=== PATIENT | female | born 1950 | race Caucasian/White ===

== ENCOUNTER 2025-03-16 09:31 | Outpatient (AMB) | payer MEDICARE, SELFPAY ==
--- NOTE | 2025-03-16 09:39 | MHC.PC.OV ---
Vital Signs 03/16/25 09:52 Height 5 ft 3.75 in Weight 138 lb 6 oz BMI 23.9 BP 126/64 Blood Pressure Location Lt brachial Position Sitting Respiration 14 Pulse 80 Pulse Source Pulse Oximeter Temp 97.6 F Temp Source Temporal Artery Scan Pulse Oximetry (%) 99 Oxygen Delivery Method Room Air Intake Visit Reasons: DOCTOR OF OPTOMETRY-PE Intake Note: Samantha presents in the office today to establish care. Allergies erythromycin base Allergy (Severe, Verified 03/16/25 13:51) throat closing Penicillins Allergy (Verified 03/16/25 09:45) throat closure Medication List - Last Reconciled 03/16/25 by CHESTER Wilks ascorbate calcium (vitamin C) 500 mg PO DAILY atorvastatin (Lipitor) 20 mg PO DAILY hydroxyzine HCl 25 mg PO BEDTIME multivitamin (Daily Multi-Vitamin tablet) 1 tab PO DAILY pantoprazole 40 mg PO DAILY zinc acetate (Galzin) 50 mg PO DAILY Tobacco use date assessed: 03/16/25 Fall risk assessment: No Falls in past year Last assessed Fall Risk: 03/16/25 Dental Screening Dental Screen Date: 03/16/25 Did you have a dental visit in the last 12 months?: Yes Did you have a dental problem in the last 6 months where you did not have access to dental care?: No Was dental information given to patient?: Patient has dentist HPI HPI Comments History of Present Illness Details This is a 74-year-old female with a past medical history of osteopenia, GERD, endometriosis status post hysterectomy, fibrocystic breast disease, osteoporosis, hyperlipidemia and bursitis presenting to establish care. She transferred from Dr. Higgins. Hyperlipidemia-treated with atorvastatin 20 mg daily. Nonsmoker. No history of cardiovascular disease. Fibrocystic breast disease, osteoporosis-followed by Dr. Neumann's office. Previously treated with Prolia. She has a bone density test and mammogram scheduled next week. She has seen [facility] for bursitis in her hips. She did physical therapy. This is stable. GERD-takes pantoprazole. She is due for colonoscopy. Requests referral to [facility]. Patient reports she is up-to-date with vaccinations. She gets the flu shot in April. The patient has a heart murmur on exam. Denies chest pain, shortness of breath, leg swelling, dizziness. ROS: Constitutional: No unexplained weight loss, fever, chills, fatigue or night sweats. Respiratory: No shortness of breath, cough or sputum production. Cardiovascular: No chest pain, chest pressure or chest discomfort. No palpitations or pedal edema. Gastrointestinal: No anorexia, nausea, vomiting or diarrhea. No abdominal pain or blood in stool. Neurologic: No headache, dizziness, syncope Hematologic/Lymphatics: No bleeding or bruising. No painful lymph nodes. Skin: No rash Psychiatric: No depression or anxiety. No SI/HI. Physical exam: Constitutional: Alert, in no distress. Neck: Supple, Full range of motion. No lymphadenopathy. No palpable thyroid masses. Respiratory: Clear to auscultation. Cardiovascular: S1 S2 regular. .II/ systolic murmur. Occasional ectopic beat. No carotid bruits. Gastrointestinal: Abdomen soft, non-tender, non-distended. Normal bowel sounds. No palpable masses. Neurologic: No focal neurological deficits. Musculoskeletal: No gross deformities. Normal range of motion. Extremities: Warm and well perfused. No clubbing, cyanosis or edema. Intact peripheral pulses bilaterally Psychiatric: Normal mood and affect COUNTS INCLUDE 234 BEDS AT THE [facility] Medical History (Updated 03/16/25 @ 13:55 by CHESTER Wilks) Fibrocystic breast disease Pure hypercholesterolemia History of endometriosis Hip bursitis Osteoporosis Screen for colon cancer Heart murmur History of mammogram Shoulder pain with history of repair of rotator cuff Eczema Acid reflux Surgical History (Updated 03/16/25 @ 09:59 by Amanda Richard MA) History of colonoscopy H/O: hysterectomy Family History (Updated 03/16/25 @ 09:52 by Amanda Richard MA) Maternal Grandmother Hypertension Stroke Mother Cardiovascular disease FHx: mental illness Dementia Brother Lymphoma Social History (Updated 03/16/25 @ 09:52 by Amanda Richard MA) Housing: House Alcohol intake: current Patient Tobacco Use Status: Never used Tobacco e-Cigarette/Vaping Use: Never Used Second Hand Smoke Exposure: Yes service: No Current occupational status: retired Current occupational exposures/hazards: No Cognitive needs: No Hearing needs: No Vision needs: No Questionnaire PHQ-9 Over the last 2 weeks, how often have you been bothered by any of the following problems? 1. Little interest or pleasure in doing things: not at all 2. Feeling down, depressed, or hopeless: not at all 3. Trouble falling or staying asleep, or sleeping too much: not at all 4. Feeling tired or having little energy: not at all 5. Poor appetite or overeating: not at all 6. Feeling bad about yourself - or that you are a failure or have let yourself or your family down: not at all 7. Trouble concentrating on things, such as reading the newspaper or watching television: not at all 8. Moving or speaking so slowly that other people could have noticed. Or the opposite - being so fidgety or restless that you have been moving around a lot more than usual: not at all 9. Thoughts that you would be better off or of hurting yourself in some way: not at all Total score: 0 Depression Screening Interpretation: Negative Depression Screening Done: Yes 78745 - PHQ-9 Billing: Yes Source: Developed by Drs. Ramin Watson, Anushka Del Valle, Michael Nguyen and colleagues, with an educational justina from [employer]. Thrive Questionnaire Date Thrive assessed: 03/16/25 I am a: Patient What is your living situation today?: I have a steady place to live Within the past 12 months, did the food you bought not last and you didn't have the money to get more?: Never true Within the past 12 months, did you worry whether your food would run out before you got money to buy more?: Never true Do you have trouble paying for medicines?: No Do you have trouble getting transportation to medical appointments?: No Do you have trouble paying your heating and electricity bill?: No Do you have trouble taking care of your child, family member or friend?: No Do you have trouble with day-to-day activities such as bathing, preparing meals, shopping, managing finances, etc.?: No Are you currently unemployed and looking for a job?: No Are you interested in more education?: No Please select the resources that you would like help with: None Currently or been in a relationship where the following occur: No concerns reported THRIVE Score: 0 AUDIT C Alcohol Use Questionnaire (AUDIT-C) 1. How often do you have a drink containing alcohol?: 4 or more times a week 2. How many drinks containing alcohol do you have on a typical day when you are drinking?: 3 or 4 3. How often do you have six or more drinks on one occasion?: Never Total Score: 5 ELIZABETH-7 AMB Questionnaire ELIZABETH-7 Date ELIZABETH - 7 assessed: 03/16/25 Feeling nervous, anxious, or on edge: 0 = Not at all Not being able to stop or control worryin = Not at all Worrying too much about different things: 0 = Not at all Trouble relaxin = Not at all Being so restless that it is hard to sit still: 0 = Not at all Becoming easily annoyed or irritable: 0 = Not at all Feeling afraid as if something awful might happen: 0 = Not at all Total ELIZABETH-7 score (0-4 normal; 5-9 mild; 10-14 moderate; 15-21 severe): 0 Source: Developed by Drs. Ramin Watson, Anushka Del Valle, Michael Nguyen and colleagues, with an educational justina from [employer]. Physical exam (Primary Care) Vital Signs: Last Vital Signs Temp 97.6 F 03/16/25 09:52 Pulse 80 03/16/25 09:52 Resp 14 03/16/25 09:52 BP 126/64 03/16/25 09:52 Pulse Ox 99 03/16/25 09:52 Oxygen Delivery Method Room Air 03/16/25 09:52 BMI result Body Mass Index 23.9 Tobacco/Smoking Status: Tobacco use Status Tobacco use date assessed 03/16/25 03/16/25 09:59 Patient Tobacco Use Status Never used Tobacco 03/16/25 09:59 e-Cigarette/Vaping Use Never Used 03/16/25 09:59 PHQ-9: PHQ-9 Score PHQ-9: Total score 0 03/16/25 10:06 Depression Screening Interpretation: Negative Thrive Assessment: Date of Thrive Assessment Date Thrive assessed 03/16/25 03/16/25 09:40 Currently or been in a relationship where the following occur: No concerns reported Office Procedures EKG Details: EKG shows normal sinus rhythm, 81 beats per minute [id number], Complete Coding Level of Care Code New Pt Level 4 (85570) Complex EM visit Add On G2211 Diagnoses Acid reflux K21.9 Heart murmur R01.1 Pure hypercholesterolemia E78.00 Screen for colon cancer Z12.11 CPT Codes EKG - CPT: 46781-[id number], Complete ([id number]) Additional Codes PHQ-9 - 63203 - PHQ-9 Billing: Yes ([id number]) Assessment & Plan Assessment & Plan (1) Acid reflux: Code(s): K21.9 - Gastro-esophageal reflux disease without esophagitis Category: Medical Plan: Avoid spicy and acidic foods. Pantoprazole refilled. (2) Heart murmur: Code(s): R01.1 - Cardiac murmur, unspecified Category: Medical Plan: Echocardiogram ordered. (3) Pure hypercholesterolemia: Code(s): E78.00 - Pure hypercholesterolemia, unspecified Category: Medical Plan: Continue atorvastatin. Recommended Mediterranean diet and avoidance of smoking. (4) Screen for colon cancer: Code(s): Z12.11 - Encounter for screening for malignant neoplasm of colon Category: Medical Plan: Refer to Gastroenterology. Plan Follow up in 8 weeks to review echo and labs. Orders: Orders Complete Blood Count no Diff Today K21.9 - Gastro-esophageal reflux disease without esophagitis, M85.80 - Other specified disorders of bone density and structure, unspecified site AMB EKG-In Office Today R01.1 - Cardiac murmur, unspecified TSH reflex Free T4 Today M85.80 - Other specified disorders of bone density and structure, unspecified site Lipid Panel Today E78.5 - Hyperlipidemia, unspecified, K21.9 - Gastro-esophageal reflux disease without esophagitis, M85.80 - Other specified disorders of bone density and structure, unspecified site Comprehensive Met. Panel Today K21.9 - Gastro-esophageal reflux disease without esophagitis, M85.80 - Other specified disorders of bone density and structure, unspecified site Vitamin D 25-OH (D2 and D3) Today K21.9 - Gastro-esophageal reflux disease without esophagitis, M85.80 - Other specified disorders of bone density and structure, unspecified site CA echo transthoracic complete Today R01.1 - Cardiac murmur, unspecified Referrals Gastroenterology Referral Z12.11 - Encounter for screening for malignant neoplasm of colon Medications: New pantoprazole 40 mg PO DAILY 90 tabs 3RF
[2025-03-16 09:52] VITALS: BP 126/64; PULSE 80; RESP 14; TEMP 36.4; O2SAT 99; BMI 23.9
== END 2025-03-16 11:11 | disposition home or self-care (01) ==
LOC: HO.HMCFM 09:32
PROVIDERS: PCP Physician Assistant Medical; Visit Provider Physician Assistant Medical
DX: K21.9 Gastro-esophageal reflux disease without esophagitis (principal); R01.1 Cardiac murmur, unspecified; E78.00 Pure hypercholesterolemia, unspecified; Z12.11 Encounter for screening for malignant neoplasm of colon

== ENCOUNTER → 2025-03-16 09:31 | Outpatient (BNVA) | payer MEDICARE, SELFPAY | PROVIDERS: Visit Provider Physician Assistant Medical | DX: Z76.89 Persons encountering health services in other specified circumstances (principal); K21.9 Gastro-esophageal reflux disease without esophagitis; R01.1 Cardiac murmur, unspecified; E78.00 Pure hypercholesterolemia, unspecified; Z71.3 Dietary counseling and surveillance | CPT/HCPCS: 93005; 96127; 99202 ==

== ENCOUNTER 2025-03-17 08:15 | Outpatient (REF) | payer MEDICARE, SELFPAY ==
[2025-03-17 11:33] LABS: Hematocrit 36.8 % (37.0-47.0); Hemoglobin 12.5 g/dl (12.0-16.0); Mean Corpuscular HGB Conc 34.0 g/dl (31.0-35.0); Mean Corpuscular Hemoglobin 30.0 pg (27.0-33.0); Mean Corpuscular Volume 88.5 fL (80.0-98.0); NRBC Abs Auto 0.000 X10*3/uL (0.0-0.012); NRBC Pct Auto 0.0 /100WBC (0.0-0.2); Platelet Count 220 X10*3/uL (160-400); Red Blood Count 4.16 X10*6/uL (4.20-5.50); White Blood Count 4.3 X10*3/uL (4.8-10.8)
[2025-03-17 12:40] LABS: Alanine Aminotransferase 19 U/L (0-31); Albumin Level 4.4 g/dL (3.5-5.0); Alkaline Phosphatase 43 U/L (39-117); Anion Gap 11 (12-20); Aspartate Amino Transferase 27 U/L (5-31); Blood Urea Nitrogen 15 mg/dL (9-16); Calcium 9.1 mg/dL (8.4-10.2); Carbon Dioxide 31 mmol/L (22-29); Chloride 104 mmol/L (96-108); Cholesterol 168 mg/dL (<200); Estimated Glomerular Filt Rate > 60; HDL Cholesterol 60 mg/dL (>40); Potassium 4.4 mmol/L (3.3-5.1); Sodium 142 mmol/L (135-145); Total Protein 6.6 g/dL (6.5-8.0); Triglycerides 72 mg/dL (<150)
[2025-03-21 17:13] LABS: Vitamin D 25-OH, D2 <4 ng/mL; Vitamin D 25-OH, D3 47 ng/mL; Vitamin D 25-OH, Total 47 ng/mL (30-100)
== END 2025-03-17 08:16 | disposition home or self-care (01) ==
LOC: HO.WFDLDS 08:15
PROVIDERS: Visit Provider Physician Assistant Medical
DX: K21.9 Gastro-esophageal reflux disease without esophagitis (principal); M85.80 Other specified disorders of bone density and structure, unspecified site; E78.5 Hyperlipidemia, unspecified
CPT/HCPCS: 36415; 80053; 80061; 82306; 84443; 85027

== ENCOUNTER 2025-05-15 08:47 | Outpatient (REF) | payer MEDICARE, SELFPAY ==
[2025-05-15 11:20] LABS: MANUAL DIFF FLAG NO
[2025-05-15 11:28] LABS: Hematocrit 38.9 % (37.0-47.0); Hemoglobin 12.6 g/dl (12.0-16.0); Imm Gran Abs Auto 0.01 X10*3/uL (0.00-0.03); Imm Gran Pct Auto 0.2 % (0.0-0.4); Lymphocytes Absolute Auto 1.9 X10*3/uL (1.2-4.9); Mean Corpuscular HGB Conc 32.4 g/dl (31.0-35.0); Mean Corpuscular Hemoglobin 29.0 pg (27.0-33.0); Mean Corpuscular Volume 89.6 fL (80.0-98.0); NRBC Abs Auto 0.000 X10*3/uL (0.0-0.012); NRBC Pct Auto 0.0 /100WBC (0.0-0.2); Platelet Count 252 X10*3/uL (160-400); Red Blood Count 4.34 X10*6/uL (4.20-5.50); White Blood Count 5.2 X10*3/uL (4.8-10.8)
[2025-05-15 12:36] LABS: Iron 96 mcg/dL (30-160); Percent Iron Saturation 45 % (15-50); Total Iron Binding Capacity 212 mcg/dL (228-428); Unsaturated Iron Binding 116 ug/dL
[2025-05-15 12:40] LABS: Ferritin 114 ng/mL (10-250)
[2025-05-15 13:08] LABS: Folate > 20.0 ng/mL (> or = 4.0); Vitamin B12 490 pg/mL (200-900)
== END 2025-05-15 08:48 | disposition home or self-care (01) ==
LOC: HO.WFDLDS 08:47
PROVIDERS: Visit Provider Physician Assistant Medical
DX: R79.89 Other specified abnormal findings of blood chemistry (principal); D64.9 Anemia, unspecified
CPT/HCPCS: 36415; 82607; 82728; 82746; 83540; 85025

== ENCOUNTER 2025-05-18 09:51 | Outpatient (AMB) | payer MEDICARE, SELFPAY ==
--- NOTE | 2025-05-18 09:59 | MHC.PC.OV ---
Vital Signs 05/18/25 10:02 Height 5 ft 3.75 in Weight 137 lb 6 oz BMI 23.8 BP 106/62 Blood Pressure Location Lt brachial Position Sitting Respiration 14 Pulse 94 Pulse Source Pulse Oximeter Temp 97.8 F Temp Source Temporal Artery Scan Pulse Oximetry (%) 95 Oxygen Delivery Method Room Air Intake Visit Reasons: review echo results Intake Note: Samantha presents in the office today to go over the results of her echocardiogram. Allergies erythromycin base Allergy (Severe, Verified 05/18/25 10:01) throat closing Penicillins Allergy (Verified 05/18/25 10:01) throat closure Tobacco use date assessed: 05/18/25 Fall risk assessment: No Falls in past year Last assessed Fall Risk: 05/18/25 Dental Screening Dental Screen Date: 05/18/25 Did you have a dental visit in the last 12 months?: Yes Did you have a dental problem in the last 6 months where you did not have access to dental care?: No Was dental information given to patient?: Patient has dentist HPI HPI Comments History of Present Illness Details This is a 74-year-old female with a past medical history of osteopenia, GERD, endometriosis status post hysterectomy, fibrocystic breast disease, osteoporosis, hyperlipidemia and bursitis presenting to review her results. She had a heart murmur detected on her intial exam. Normal EKG. Echocardiogram demonstrated bicuspid aortic valve, mild aortic valve calcification, mild aortic stenosis and dilation of the aortic root and ascending aorta to a maxium of 45 mm. She denies leg swelling, palpitations, chest pain, shortness of breath and dizziness. Denies known family history of aneurysm and connective tissue disorder. She walks two miles per day. Hyperlipidemia-treated with atorvastatin 20 mg daily. Nonsmoker. Fibrocystic breast disease, osteoporosis-followed by Dr. Neumann's office. Previously treated with Prolia. She has seen [facility] for bursitis in her hips. She did physical therapy. This is stable. GERD-takes pantoprazole. She is due for colonoscopy and was referred to [facility]. Mild anemia and decreased WBC count resolved when labs were repeated. ROS: Constitutional: No unexplained weight loss, fever, chills, fatigue or night sweats. Respiratory: No shortness of breath, cough or sputum production. Cardiovascular: see HPI Gastrointestinal: No anorexia, nausea, vomiting or diarrhea. No abdominal pain or blood in stool. Neurologic: No headache, dizziness, syncope Hematologic/Lymphatics: No bleeding or bruising. No painful lymph nodes. Physical exam: Constitutional: Alert, in no distress. Neck: Supple, Full range of motion. No lymphadenopathy. No palpable thyroid masses. Respiratory: Clear to auscultation. Cardiovascular: S1 S2 regular. .II/ systolic murmur. No carotid bruits. Extremities: Warm and well perfused. No clubbing, cyanosis or edema. Intact peripheral pulses bilaterally Psychiatric: Normal mood and affect [facility] Medical History (Updated 05/18/25 @ 22:20 by CHESTER Wilks) Aneurysm, aorta, thoracic Mild aortic regurgitation Bicuspid aortic valve Abnormal CBC Fibrocystic breast disease Pure hypercholesterolemia History of endometriosis Hip bursitis Osteoporosis Screen for colon cancer Heart murmur History of mammogram Shoulder pain with history of repair of rotator cuff Eczema Acid reflux Surgical History (Updated 03/16/25 @ 09:59 by Amanda Richard MA) History of colonoscopy H/O: hysterectomy Family History Maternal Grandmother Hypertension Stroke Mother Cardiovascular disease FHx: mental illness Dementia Brother Lymphoma Social History (Updated 05/18/25 @ 10:02 by Amanda Richard CMA) Housing: House Alcohol intake: current Patient Tobacco Use Status: Never used Tobacco e-Cigarette/Vaping Use: Never Used Second Hand Smoke Exposure: Yes service: No Current occupational status: retired Current occupational exposures/hazards: No Cognitive needs: No Hearing needs: No Vision needs: No Questionnaire Thrive Questionnaire Date Thrive assessed: 03/16/25 I am a: Patient What is your living situation today?: I have a steady place to live Within the past 12 months, did the food you bought not last and you didn't have the money to get more?: Never true Within the past 12 months, did you worry whether your food would run out before you got money to buy more?: Never true Do you have trouble paying for medicines?: No Do you have trouble getting transportation to medical appointments?: No Do you have trouble paying your heating and electricity bill?: No Do you have trouble taking care of your child, family member or friend?: No Do you have trouble with day-to-day activities such as bathing, preparing meals, shopping, managing finances, etc.?: No Are you currently unemployed and looking for a job?: No Are you interested in more education?: No Please select the resources that you would like help with: None Currently or been in a relationship where the following occur: No concerns reported THRIVE Score: 0 ELIZABETH-7 AMB Questionnaire ELIZABETH-7 Date ELIZABETH - 7 assessed: 03/16/25 Source: Developed by Drs. Ramin Watson, Anushka Del Valle, Michael Nguyen and colleagues, with an educational justina from [employer]. Physical exam (Primary Care) Vital Signs: Last Vital Signs Temp 97.8 F 05/18/25 10:02 Pulse 94 05/18/25 10:02 Resp 14 05/18/25 10:02 BP 106/62 05/18/25 10:02 Pulse Ox 95 05/18/25 10:02 Oxygen Delivery Method Room Air 05/18/25 10:02 BMI result Body Mass Index 23.8 Tobacco/Smoking Status: Tobacco use Status Tobacco use date assessed 05/18/25 05/18/25 10:05 Patient Tobacco Use Status Never used Tobacco 05/18/25 10:05 e-Cigarette/Vaping Use Never Used 05/18/25 10:05 Thrive Assessment: Date of Thrive Assessment Date Thrive assessed 03/16/25 05/18/25 10:05 Currently or been in a relationship where the following occur: No concerns reported Coding Level of Care Code Est Pt Level 4 (73048) Complex EM visit Add On G2211 Diagnoses Bicuspid aortic valve Q23.1 Mild aortic regurgitation I35.1 Aneurysm, aorta, thoracic I71.20 Abnormal CBC R79.89 Assessment & Plan Assessment & Plan (1) Bicuspid aortic valve: Code(s): Q23.1 - Congenital insufficiency of aortic valve Category: Medical (2) Mild aortic regurgitation: Code(s): I35.1 - Nonrheumatic aortic (valve) insufficiency Category: Medical (3) Aneurysm, aorta, thoracic: Code(s): I71.20 - Thoracic aortic aneurysm, without rupture, unspecified Category: Medical (4) Abnormal CBC: Code(s): R79.89 - Other specified abnormal findings of blood chemistry Category: Medical Plan BP target <120/80. Avoid smoking and alcohol. Patient maintains normal BMI. Refer to cardiology, Dr. Farooq for evaluation. Abnormal CBC resolved. Continue current medications. Orders: Referrals Cardiology Referral I35.1 - Nonrheumatic aortic (valve) insufficiency, Q23.1 - Congenital insufficiency of aortic valve
[2025-05-18 10:02] VITALS: BP 106/62; PULSE 94; RESP 14; TEMP 36.6; O2SAT 95; BMI 23.8
== END 2025-05-18 10:45 | disposition home or self-care (01) ==
PROVIDERS: PCP Physician Assistant Medical; Visit Provider Physician Assistant Medical
DX: Q23.1 Congenital insufficiency of aortic valve (principal); I35.1 Nonrheumatic aortic (valve) insufficiency; I71.20 Thoracic aortic aneurysm, without rupture, unspecified; R79.89 Other specified abnormal findings of blood chemistry

== ENCOUNTER → 2025-05-18 09:51 | Outpatient (BNVA) | payer MEDICARE, SELFPAY | PROVIDERS: PCP Physician Assistant Medical; Visit Provider Physician Assistant Medical | DX: Z71.2 Person consulting for explanation of examination or test findings (principal); Q23.1 Congenital insufficiency of aortic valve; I35.1 Nonrheumatic aortic (valve) insufficiency; I71.20 Thoracic aortic aneurysm, without rupture, unspecified; R79.89 Other specified abnormal findings of blood chemistry | CPT/HCPCS: 99212 ==